=== PATIENT | female | born 1995 | race Caucasian/White ===

== ENCOUNTER → 2017-05-23 | Outpatient (CLI) | payer OTHER ==
[~2017-05-23] MED LIST: BCPILLS PO; PRENTAB26 PO; RANI150T3 PO
== END | disposition home or self-care (01) ==
LOC: C.LABSPEC 17:40
PROVIDERS: ATTEND Obstetrics & Gynecology
DX: O09.613 Supervision of young primigravida, third trimester (principal); Z3A.00 Weeks of gestation of pregnancy not specified

== ENCOUNTER 2017-05-25 19:48 | Outpatient (CLI) | payer OTHER ==
[~2017-05-25] VITALS: Ht 162.6 cm; Wt 88.0 kg
[~2017-05-25 19:48] MED LIST changes: -PRENTAB26 PO; -RANI150T3 PO
[2017-05-25 21:19] VITALS: Ht 162.6 cm; Wt 88.0 kg
[2017-05-25] MEDS ORDERED: PRENTAB26 PO (21:22)
[2017-05-25] MEDS ORDERED: RANI150T3 PO (21:23)
== END 2017-05-25 23:15 | disposition home or self-care (01) ==
LOC: C.LD 19:48 → C.OPB 19:48
PROVIDERS: ATTEND Obstetrics & Gynecology
DX: O62.9 Abnormality of forces of labor, unspecified (principal); Z3A.36 36 weeks gestation of pregnancy

== ENCOUNTER 2017-06-02 00:41 | Outpatient (CLI) | payer OTHER ==
[~2017-06-02] VITALS: Ht 165.1 cm; Wt 88.2 kg
[~2017-06-02 00:41] MED LIST changes: -BCPILLS PO; +PRENTAB26 PO; +RANI150T3 PO
[2017-06-02 01:35] VITALS: Ht 165.1 cm; Wt 88.2 kg
--- NOTE | 2017-06-05 08:14 | EDITING REQUIRED CODING QUERY ---
DIAGNOSIS NEEDED To promote full compliance with coding requirements relating to patient care, physician participation is requested in all cases of music publisher uncertainty. Please assist us with the question(s) below: Coding Question: The patient received care in labor and delivery on 06/02/17 as noted within the record. Please document the diagnosis that is being addressed by the medication/treatment. Provider Response: DIAGNOSIS: Contractions at 37 weeks, r/o labor WEEKS OF GESTATION: 37 weeks Thank you for your assistance, Denise Owens - Clinical Abstractor
== END 2017-06-02 06:25 | disposition home or self-care (01) ==
LOC: C.LD 00:41 → C.OPB 00:41
PROVIDERS: ATTEND Obstetrics & Gynecology
DX: O62.9 Abnormality of forces of labor, unspecified (principal); Z3A.37 37 weeks gestation of pregnancy

== ENCOUNTER 2017-06-04 13:59 | Outpatient (CLI) | payer OTHER | END 2017-06-04 16:05 | disposition home or self-care (01) | LOC: C.OPB 13:59 → C.LD 13:59 → C.OPB 16:05 | PROVIDERS: ATTEND Obstetrics & Gynecology | DX: O62.9 Abnormality of forces of labor, unspecified (principal); Z3A.38 38 weeks gestation of pregnancy ==

== ENCOUNTER 2017-06-13 00:35 | Inpatient (IN) | payer OTHER ==
[~2017-06-13] VITALS: Ht 165.1 cm; Wt 90.0 kg
[2017-06-13] MEDS ORDERED: LACTATED RINGER'S 1000ML 1,000 ML IV SCH (01:04)
[2017-06-13] MEDS ORDERED: LACTATED RINGER'S 1000ML 1,000 ML IV PRN (01:04)
[2017-06-13 01:37] LABS: HEMATOCRIT 32.3 % (37-47); MEAN CELL VOLUME 84.1 fL (80-100); MEAN CORPUSCULAR HEMOGLOBIN 26.8 pg (25-34); MEAN CORPUSCULAR HGB CONC 31.9 g/dl (32-36); PLATELET COUNT 266 K/uL (130-400); RED BLOOD COUNT 3.84 M/uL (4.2-5.4)
[2017-06-13] MEDS ORDERED: FENTANYL CITRATE INJ 50 MCG/1 ML 2 ML VIAL ONE (01:55)
[2017-06-13] MEDS ORDERED: BUPIVACAINE 0.25% 30 ML VIAL ONE (01:55)
[2017-06-13] MEDS ORDERED: FENTANYL 2MCG/ML ROPIV 1.25MG/ML 100ML BAG EPI ONE (01:55)
[2017-06-13] MEDS ORDERED: EpHEDrine SULFATE INJ 50 MG/ML AMP ONE (01:55)
[2017-06-13] MEDS ORDERED: LACTATED RINGER'S 1000ML 500 ML IV PRN (02:34)
[2017-06-13] MEDS ORDERED: NALOXONE HCL INJ 1 MG in SODIUM CHLORIDE 0.9% 1000ML 1,000 ML IV PRN (02:34)
[2017-06-13] MEDS ORDERED: NALOXONE HCL INJ 0.4 MG/1 ML VIAL/CARP IV PRN (02:45)
[2017-06-13] MEDS ORDERED: EpHEDrine SULFATE INJ 50 MG/ML AMP IV PRN (02:45)
[2017-06-13] MEDS ORDERED: NALBUPHINE HCL INJ 10 MG/ML AMP IV PRN (02:45)
[2017-06-13] MEDS ORDERED: DiphenhydrAMINE HCL 50 MG/ML VIAL IV PRN (02:45)
[2017-06-13 03:21] VITALS: Ht 165.1 cm; Wt 90.0 kg
[2017-06-13] MEDS: FENTANYL 2MCG/ML ROPIV 1.25MG/ML 100ML BAG EPI PRN ×2 (07:19→09:42)
[2017-06-13] MEDS ORDERED: OXYTOCIN 30 UNITS/500ML NSS IV ONE (08:47)
--- NOTE | 2017-06-13 10:49 | Vaginal Delivery Summary ---
Vaginal Delivery Summary The patient dilated to complete and pushed to deliver a viable female infant Apgars 10 and 10 via over intact perineum. Mouth and nose bulb suctioned at the perineum. Shoulders and body delivered with ease. vigorous and crying at . Placenta delivered spontaneously intact 3 vessel cord. Hemostasis achieved with dilute Pitocin and uterine massage. Bladder drained under sterile conditions for approximately 100 cc's. Vaginal lacerations as well as a right labial laceration repaired in the usual fashion using 3-0 Vicryl. EBL 300 cc's. Mother and baby stable in recovery.
[2017-06-13] MEDS ORDERED: BENZOCAINE 20% AER SPR 82.5 GM CAN EXT PRN (11:00)
[2017-06-13] MEDS ORDERED: ACETAMINOPHEN/CODEINE 300/30MG TAB PO PRN ×2 (11:00)
[2017-06-13] MEDS ORDERED: SUPERCREAM 0.870 % 15GM JAR EXT PRN (11:00)
[2017-06-13] MEDS ORDERED: HYDROCORTISONE ACETATE 25 MG SUPP PR PRN (11:00)
[2017-06-13] MEDS ORDERED: LANOLIN OINT EXT PRN ×2 (11:00)
[2017-06-13] MEDS ORDERED: DIPHTHERIA/TETANUS/PERTUSSIS 0.5 ML SYR/VIAL IM. ONE (11:00)
[2017-06-13] MEDS ORDERED: ACETAMINOPHEN 325 MG TAB PO PRN (11:00)
[2017-06-13] MEDS ORDERED: OXYTOCIN 30 UNITS/500ML NSS IV PRN (11:00)
[2017-06-13] MEDS ORDERED: OXYTOCIN INJ 20 UNITS in LACTATED RINGER'S 1000ML 1,000 ML IV SCH (11:15)
--- NOTE | 2017-06-13 12:28 | Anesthesia Procedure Note ---
Anesthesia Epidural Removal Nt Date & Time Jun 13, 2017 at 12:28 Vital Signs Pain Intensity: 3.0 Notes Mental Status: alert / awake / arousable, participated in evaluation Nausea / Vomiting: adequately controlled Pain: adequately controlled Airway Patency, RR, SpO2: stable & adequate BP & HR: stable & adequate Hydration State: stable & adequate Neuraxial Anesthesia: was administered Anesthetic Complications: no major complications apparent, pt satisfied with anesthetic care Epidural: removed without complications, with tip intact
[2017-06-13 14:30] VITALS: BP 116/71; PULSE 73; TEMP 37
[2017-06-13 19:10] VITALS: BP 118/71; PULSE 97; TEMP 36.9; O2SAT 99
[2017-06-13] MEDS: DOCUSATE SODIUM 100 MG CAP PO SCH (19:17)
[2017-06-13] MEDS: IBUPROFEN 600 MG TAB PO PRN (19:17)
[2017-06-13 22:55] VITALS: BP 115/72; PULSE 77; TEMP 36.7; O2SAT 98
[2017-06-14] MEDS: IBUPROFEN 600 MG TAB PO PRN ×4 (00:28→21:44)
[2017-06-14 03:55] VITALS: BP 108/68; PULSE 74; TEMP 36.4; O2SAT 98
--- NOTE | 2017-06-14 06:30 | Progress Note ---
Subjective Jun 14, 2017. Subjective conversation w/ patient, physical exam, chart review, lab review Ambulation: limited ambulation (to bathroom thus far) Voiding: no voiding problems Passing Gas: Yes Diet Tolerance: Regular Diet Lochia: Small Feeding Type: Breast Feeding Pain: Says minimal cramping Comment: Found pt resting comfortably, denies any particular acute events or concerns. Review of Systems Constitutional: No fever, No chills Respiratory: No cough, No shortness of breath Cardiac: No chest pain Abdomen: No nausea, No vomiting, No diarrhea Female : No dysuria Objective Vital Signs Date Time Temp Pulse Resp B/P (MAP) Pulse Ox O2 Delivery O2 Flow Rate FiO2 06/14/17 03:55 36.4 74 16 108/68 (81) 98 Room Air 06/13/17 22:55 Room Air 06/13/17 22:55 36.7 77 16 115/72 (86) 98 Room Air 06/13/17 19:10 Room Air 06/13/17 19:10 36.9 97 16 118/71 (87) 99 Room Air 06/13/17 14:30 Room Air 06/13/17 14:30 37.0 73 20 116/71 (86) Room Air Physical Exam General Appearance: WELL-APPEARING, WD/WN, NO APPARENT DISTRESS Respiratory/Chest: lungs clear, normal breath sounds Cardiovascular: regular rate, rhythm, no murmur Abdomen: normal bowel sounds, non tender, soft Fundus: Firm, Non-Tender, Relation to Umbilicus (approx one down) Extremities: normal range of motion, no calf tenderness, + pedal edema (1+ bilaterally) Assessment and Plan Post- Day#: 1 Continue Routine Care: 21F s/p , now PPD #1. - Blood type B positive. GBS negative. Rubella immune. - Vital signs reviewed and stable. - Pain controlled with motrin and tylenol. - Mild bilateral leg swelling and no tenderness on calf palpation. Encourage ambulation. - Encourage breast feeding. - Hemoglobin pre-delivery 10.3. Bleeding has improved. Continue to monitor clinically. - Continue routine post-vaginal delivery care. - Pt agreed with above plan, all current questions answered. Usama Garcia MD, PGY1 [employer] Physician Supervision Note: I was present with Dr. Garcia during the history and exam. I discussed the case with the resident and agree with the findings and plan as documented in the note. Any exceptions or clarifications are listed here: Doing well. routine care. Documented By: Lena Loving Resident Tracking Resident Involvement: Resident Care Provided Care Provided: OB Delivery (OB rounds)
[2017-06-14] MEDS: DOCUSATE SODIUM 100 MG CAP PO SCH ×2 (08:30→20:06)
[2017-06-14 08:35] VITALS: BP 109/74; PULSE 76; TEMP 36.4
[2017-06-14 15:35] VITALS: BP 121/83; PULSE 80; TEMP 36.6
[2017-06-14 23:45] VITALS: BP 109/68; PULSE 67; TEMP 36.6
--- NOTE | 2017-06-15 06:22 | Progress Note ---
Subjective Jun 15, 2017. Subjective conversation w/ patient, physical exam Ambulation: ambulating normally Voiding: no voiding problems Passing Gas: Yes Diet Tolerance: Regular Diet Lochia: Small Feeding Type: Breast Feeding Review of Systems Constitutional: No fever, No chills, No sweats, No weight loss, No weakness, No fatigue, No problem reported Abdomen: No pain, No nausea, No vomiting, No diarrhea, No constipation, No GI bleeding, No problem reported Objective Vital Signs Date Time Temp Pulse Resp B/P (MAP) Pulse Ox O2 Delivery O2 Flow Rate FiO2 06/14/17 23:45 36.6 67 16 109/68 (82) 06/14/17 23:45 Room Air 06/14/17 15:35 36.6 80 16 121/83 (96) Room Air 06/14/17 15:35 Room Air 06/14/17 08:35 36.4 76 16 109/74 (86) Room Air 06/14/17 08:35 Room Air Physical Exam General Appearance: WELL-APPEARING, NO APPARENT DISTRESS Abdomen: non tender, soft Fundus: Firm, Non-Tender, Relation to Umbilicus (at U) Extremities: no calf tenderness Assessment and Plan Post- Day#: 2 Continue Routine Care: stable course continue current care plan discharge to home follow up in 6 weeks.
--- NOTE | 2017-06-15 06:37 | Discharge Instructions ---
Discharge Instructions Date of Service Jun 15, 2017. 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 Instructions / Follow-Up Instructions / Follow-Up ACTIVITY RECOMMENDATIONS: * Gradual return to full activity over the next 2-3 weeks. * No lifting - nothing heavier than baby over the next 2-3 weeks. * Do not engage in vigorous exercise, sexual activity or sports until cleared by your physician. * Do not drive or operate any motorized equipment until cleared by your physician. * You may shower/bathe daily. MEDICATIONS: For discomfort or pain, you may use Acetaminophen (Tylenol), Ibuprofen (Advil), or Naproxen (Aleve) following the package directions. For constipation you may use Colace following the package directions. BREAST CARE: If you are not breast feeding: * Wear a supportive bra 24 hours a day for one to two weeks. * Avoid stimulating your breasts and nipples as much as possible during the first few weeks after delivery. * When taking a shower, have the warm water hit your back, not breasts. * When your breasts feel full, apply ice packs. Usually three to four times a day helps ease the discomfort. * Take a mild pain medication (Tylenol / Motrin) when you are uncomfortable. If breast feeding: * Use breast milk to lubricate nipples. Lansinoh cream may be used for sore nipples. You do not need to remove cream prior to breast feeding. If using a different brand of cream, check the label for directions regarding removal of cream prior to nursing. * Wear a supportive bra. * If having problems with breasts or breast feeding, call a commercial sales consultant or your health care provider. EPISIOTOMY CARE: After delivery, if you have an episiotomy (stitches), the following steps will ease discomfort and aid healing. * For the first 24 hours after delivery, place ice packs next to your episiotomy to help reduce swelling. * After the first 24 hour-period, sitz baths, either portable or in the tub, are suggested. A shower with a shower arm sprayed over the episiotomy may be comforting. * Whitney care should be done after each voiding and bowel movement. Squirt warm water from a plastic bottle over the perineum (region of the body between the anus and urinary opening) and pat dry. * Use Dermoplast to ease discomfort. Shake container. Mitchell directly over the episiotomy. Place a Tucks on a clean sanitary pad next to your episiotomy. SPECIAL CARE INSTRUCTIONS: When you are discharged from the hospital, it is important for you to follow the instructions listed below: * During the first week at home, you should be able to care for yourself and your baby. In addition, the usual light household activities are encouraged. * Limit your activities to the way you feel. Do not try to clean the house or move furniture. Be sensible. * If you actively engage in sports and have done so up until the time of your delivery, you may resume these activities as soon as you feel able. This may take up to one month or even longer. Use good judgment. * Continue to take your vitamins for at least six weeks after the of your baby. * Your diet need not be limited unless you were on a special diet before your delivery. Breast-feeding mothers need around 2500 calories per day and at least 64-80 ounces of fluid per day (8 to 10 glasses). * You should eat foods from the four major food groups. Crash diets or fad diets are to be avoided. Eating lean meats, fresh fruits and vegetables, low-fat dairy products, high fiber foods and a regular exercise program, will help you get back to your pre- weight without putting your health at risk. * Constipation is sometimes a problem after delivery. Take a mild laxative as needed. If breast feeding, Milk of Magnesia is acceptable to use. You may use a suppository or Fleets enema if no episiotomy. * A daily shower or tub bath is suggested. Be sure to thoroughly and gently dry the perineum. * A bloody vaginal discharge will usually continue until around four weeks post . A small amount of bleeding may continue for as long as six weeks. Vaginal discharge changes from the bright red bleeding after delivery to pink then brownish and finally yellowish-pink before becoming white and disappearing. * Bleeding may increase with activity. Your first period may come in 4-8 weeks. If you are breast feeding, your period may be delayed even longer. * [place] (sex) can begin whenever both you and your partner feel comfortable and do not have any form of genital infection. It is recommended that you wait at least six weeks for internal and external healing to occur. If you have questions, please talk to your health care practitioner. A condom should be used to prevent infection and . * Foreplay, gentle intercourse and lubrication is very important the first several times to prevent pain. A water-based lubricant such as K-Y jelly or Astroglide may be used. * If you have RH negative blood and your baby is RH positive, you will receive RHOGAM by injection prior to discharge. The nurse will give you a card to keep with you that has the date and place that you received RHOGAM after delivery. * During your care, you had a Rubella screen done to check for the presence of rubella antibodies in your blood. If your test was negative, you will receive a Rubella vaccine prior to discharge. This vaccine may cause a fever, soreness at the injection site and flu-like symptoms. If these symptoms persist, notify your health care practitioner. is not advised for one month after a Rubella vaccine. * Verbalizes understanding of car seat law as reviewed with patient nursing. * Car Seat hand-out given and reviewed with patient by nursing. * Shaken baby information reviewed with patient by nursing. Call you doctor if: * Heavy bleeding (saturating several pads an hour) or passing clots the size of your fist. * A fever >101 degrees F (38.3 degrees C) on two occasions four hours apart and /or chills. * Unusual pain in the pelvic or vaginal areas. * "Baby Blues" lasting longer than two weeks. If you have any questions or concerns, call your health care practitioner at . FOLLOW UP VISIT: * Please call the office at to schedule a 6 week examination. It is important you keep this appointment. It is important for you to make arrangements for either yearly or twice yearly check-ups thereafter. Current Hospital Diet Patient's current hospital diet: Regular OB Diet Discharge Diet Recommended Diet: Regular OB Diet Pending Studies Studies pending at discharge: yes List of pending studies: Placenta exam Medical Emergencies . Who to Call and When: Medical Emergencies: If at any time you feel your situation is an emergency, please call 911 immediately. . Non-Emergent Contact Non-Emergency issues call your: Manager Monitoring . . "Provider Documentation" section prepared by Usama Garcia. . VTE Core Measure Inpt VTE Proph given/why not?: Treatment not indicated
[2017-06-15] MEDS: DOCUSATE SODIUM 100 MG CAP PO SCH (08:16)
[2017-06-15] MEDS: IBUPROFEN 600 MG TAB PO PRN (08:16)
[2017-06-15 08:20] VITALS: BP 115/75; PULSE 72; TEMP 36.6
[2017-06-15 14:15] VITALS: BP_DIAS 75; PULSE 72; TEMP 36.6
== END 2017-06-15 14:15 | disposition home or self-care (01) | DRG 775 ==
LOC: C.OPB 00:35 → C.LD 00:36 → C.OPB 01:07 → C.OBG 15:06
PROVIDERS: ADMIT Obstetrics & Gynecology; ATTEND Obstetrics & Gynecology
PROC: 0HQ9XZZ Repair Perineum Skin, External Approach (ICD-10-PCS; principal; 2017-06-13)
PROC: 10E0XZZ Delivery of Products of Conception, External Approach (ICD-10-PCS; principal; 2017-06-13)
DX: O76 Abnormality in fetal heart rate and rhythm complicating labor and delivery (principal); O70.0 First degree perineal laceration during delivery; Z3A.39 39 weeks gestation of pregnancy; Z37.0 Single live birth